=== PATIENT | female | born 1995 | race Caucasian/White ===

== ENCOUNTER 2024-03-27 13:34 | Emergency (ER) | payer MEDICAID, OTHER ==
[2024-03-27 13:50] VITALS: BMI 32.8
[2024-03-27] MEDS ORDERED: HYDROcodone/Acetaminophen 5/325 mg Tablet ONE (15:48)
== END 2024-03-27 15:55 | disposition home or self-care (01) ==
LOC: CSHERS 13:34 → EDSTATUS 13:36 → CSHERS 15:55
DX: O9A.213 Injury, poisoning and certain other consequences of external causes complicating pregnancy, third trimester (principal); S30.0XXA Contusion of lower back and pelvis, initial encounter; Z55.6 Problems related to health literacy; Z3A.28 28 weeks gestation of pregnancy; Y04.8XXA Assault by other bodily force, initial encounter; Y92.828 Other wilderness area as the place of occurrence of the external cause; S80.212A Abrasion, left knee, initial encounter; O99.891 Other specified diseases and conditions complicating pregnancy; R10.2 Pelvic and perineal pain; Z3A.29 29 weeks gestation of pregnancy
CPT/HCPCS: 72170; 76815; 99283; 99284